=== PATIENT | female | born 1980 | race Caucasian/White ===

== ENCOUNTER 2017-01-04 21:10 | Emergency (ER) | payer OTHER ==
[~2017-01-04] VITALS: Ht 162.6 cm; Wt 54.4 kg
[2017-01-04 21:17] VITALS: BP 109/68
--- NOTE | 2017-01-04 21:27 | NUR ---
URINE SENT TO LAB
[2017-01-04 21:45] LABS: APPEARANCE,URINE CLEAR (CLEAR); BILIRUBIN,URINE NEGATIVE (NEGATIVE); BLOOD, URINE NEGATIVE Ery/uL (NEGATIVE); COLOR,URINE YELLOW (YELLOW); KETONES,URINE NEGATIVE (NEGATIVE); LEUKOCYTE ESTERASE ,URINE 2+ (NEGATIVE); NITRITE, URINE NEGATIVE (NEGATIVE); PROTEIN,URINE NEGATIVE (NEGATIVE); UGLUCOSE NEGATIVE (NEGATIVE); UROBILINOGEN,URINE 0.2 EU/dL (0.2)
[2017-01-04 21:52] LABS: BACTERIA,URINE 1+ /HPF (None Seen)
== END 2017-01-04 22:07 | disposition home or self-care (01) ==
LOC: ER 21:10
DX: N30.90 Cystitis, unspecified without hematuria (principal); M54.5 Low back pain
CPT/HCPCS: 81001; 84703; 87086; 99284; A4606; Z7610; 81000-TC